=== PATIENT | male | born 1955 | race Hispanic/Latino ===

== ENCOUNTER → 2017-09-19 | Day surgery (SDC) | payer BC ==
[~2017-09-19] MED LIST: ASPIR 8181 MG PO; BACTRIM DS TAB1 EACH PO; CLINDAMYCIN HC300 MG PO; COZAAR25 MG PO; GLIMEPIRIDE2 MG PO; HYDROCODONE/APAP PO; JANUVIA100 MG PO; METFORMIN HCL500 M2 PO; OR PHACO EYE KIT ONE; PLAVIX75 MG PO; PRAVASTATIN SOD20 MG PO; PREOP PHACO EYE KIT ONE
== END | disposition home or self-care (01) ==
LOC: OR 05:00
PROVIDERS: ATTEND Ophthalmology
DX: H25.11 Age-related nuclear cataract, right eye (principal); I10 Essential (primary) hypertension; E11.9 Type 2 diabetes mellitus without complications; F17.210 Nicotine dependence, cigarettes, uncomplicated; Z79.02 Long term (current) use of antithrombotics/antiplatelets
CPT/HCPCS: 36415; 66984; 82948; V2632

== ENCOUNTER 2018-10-31 20:28 | Inpatient (IN) | payer BC ==
[~2018-10-31] VITALS: Ht 182.9 cm; Wt 86.2 kg
[~2018-10-31 20:28] MED LIST changes: -OR PHACO EYE KIT ONE; -PREOP PHACO EYE KIT ONE
--- OUTSIDE RECORDS SUMMARY | 2018-10-31 20:32 | XMS REPORT ---
Author Author [facility] Address Unknown Phone Unavailable Care Team Providers Care Photo Mask Pattern Generator Name Role Phone Unavailable Unavailable Payers Payer Name Policy Type Policy Number Effective Date Expiration Date Problems This patient has no known problems. Allergies, Adverse Reactions, Alerts Allergy Name Allergy Type Status Severity Reaction(s) Onset Date Inactive Date Treating Clinician Comments No Known Allergies DA Active U 2018-07-05 00:00:00 Medications This patient has no known medications.
[2018-10-31] MEDS ORDERED: SODIUM CHLORIDE 0.9% 1000ML 1,000 ML IV STA (20:58)
[2018-10-31 21:19] LABS: BASOPHILS # (AUTO) 0.1 (0.0-0.1); BASOPHILS % 0.4 % (0.0-1.0); EOSINOPHILS # (AUTO) 0.1 (0.0-0.4); EOSINOPHILS % 0.6 % (0.0-6.0); HEMATOCRIT 26.5 % (38.2-49.6); HEMOGLOBIN 9.1 g/dL (14.0-18.0); LYMPHOCYTES % 6.9 % (18.0-39.1); MEAN CORPUSCULAR HEMOGLOBIN 28.3 pg (28-32); MEAN CORPUSCULAR HGB CONC 34.3 g/dL (31-35); MEAN CORPUSCULAR VOLUME 82.3 fL (81-99); MONOCYTES % 6.7 % (4.4-11.3); NEUTROPHILS # (AUTO) 12.1 (2.1-6.9); NEUTROPHILS % 84.5 % (38.7-80.0); PLATELET COUNT 388 x10e3/uL (140-360); RED BLOOD COUNT 3.22 x10e6/uL (4.3-5.7)
[2018-10-31 21:35] LABS: ALBUMIN 2.5 g/dL (3.5-5.0); ALBUMIN/GLOBULIN RATIO 0.6 (0.8-2.0); ANION GAP 15.8 mmol/L (8-16); CALCIUM 8.9 mg/dL (8.4-10.2); CREATININE, SERUM 1.43 mg/dL (0.72-1.25); POTASSIUM 3.8 mmol/L (3.5-5.1)
[2018-10-31] MEDS: PIPER-TAZ 3.375 GM 50 ML IV SCH (21:36)
[2018-10-31] MEDS ORDERED: NEOMYCIN/POLYMYX/BACITR OINT 0.9 GM PKT TOP ONE (21:45)
[2018-10-31] MEDS: VANCOMYCIN 1GM/NS 250 ML 250 ML IV SCH (22:06)
--- NOTE | 2018-10-31 22:06 | NUR ---
wound to l plantar foot and great toe cleaned c ns. abx ointment applied. covered c 4x4 gauze and secured c kerlix.
--- NOTE | 2018-10-31 22:09 | Diagnostic Imaging Report ---
FOOT LEFT COMPLETE Comparison: None Clinical history: Osteomyelitis Findings: No displaced fracture or bony destruction. Mild midfoot degenerative changes. Incidental plantar calcaneal spur and Achilles enthesophyte. Vascular calcifications. Impression: No radiographic evidence of osteomyelitis. If there is ongoing clinical concern, consider short-term follow-up or MRI. Signed by: Dr Julia Jack MD on 10/31/2018 10:05 PM
[2018-10-31] MEDS ORDERED: DEXTROSE 50% SYRINGE 50 ML IV PRN (23:00)
[2018-10-31] MEDS ORDERED: MORPHINE SULFATE 2 MG/ML SYR 1ML IV PRN (23:00)
[2018-10-31] MEDS ORDERED: ONDANSETRON HCL INJ 2MG/ML 2ML 2 MG/ML VIAL IV PRN (23:00)
[2018-10-31] MEDS ORDERED: CLINDAMYCIN HC150 MG PO (23:24)
[2018-10-31] MEDS ORDERED: NIFEDIPINE ER30 M1 PO (23:24)
[2018-10-31] MEDS ORDERED: TYLENOL WITH C1 EACH PO (23:25)
[2018-10-31] MEDS ORDERED: METOPROLOL SUCC50 MG PO (23:26)
[2018-11-01] VITALS (11 sets, daily range): BP systolic 133–170; BP diastolic 64–81
[2018-11-01] MEDS: SODIUM CHLORIDE 0.9% 1000ML 1,000 ML IV SCH ×4 (00:38→22:53)
[2018-11-01] MEDS: PIPER-TAZ 3.375 GM 50 ML IV SCH ×3 (05:47→22:14)
[2018-11-01 06:49] LABS: BASOPHILS % 0.4 % (0.0-1.0); EOSINOPHILS # (AUTO) 0.1 (0.0-0.4); EOSINOPHILS % 0.6 % (0.0-6.0); HEMATOCRIT 24.1 % (38.2-49.6); HEMOGLOBIN 8.4 g/dL (14.0-18.0); LYMPHOCYTES % 8.5 % (18.0-39.1); MEAN CORPUSCULAR HEMOGLOBIN 28.5 pg (28-32); MEAN CORPUSCULAR HGB CONC 34.9 g/dL (31-35); MEAN CORPUSCULAR VOLUME 81.7 fL (81-99); MONOCYTES # (AUTO) 0.8 (0.2-0.8); NEUTROPHILS # (AUTO) 9.3 (2.1-6.9); NEUTROPHILS % 82.5 % (38.7-80.0); PLATELET COUNT 341 x10e3/uL (140-360); RED BLOOD COUNT 2.95 x10e6/uL (4.3-5.7); RED CELL DISTRIBUTION WIDTH 13.2 % (11.7-14.4)
--- NOTE | 2018-11-01 07:00 | NUR ---
rounded with night coordinator nurse, patient aware of change and in no distress. Call wasserman within reach and bed in lowest position
[2018-11-01 07:42] LABS: ALANINE AMINOTRANSFERASE 51 IU/L (0-55); ALBUMIN 2.2 g/dL (3.5-5.0); ALBUMIN/GLOBULIN RATIO 0.6 (0.8-2.0); ALKALINE PHOSPHATASE 87 IU/L (40-150); ANION GAP 13.7 mmol/L (8-16); BLOOD UREA NITROGEN 18 mg/dL (7-26); BUN/CREATININE RATIO 15 (6-25); CALCIUM 8.2 mg/dL (8.4-10.2); CARBON DIOXIDE 19 mmol/L (22-29); CHLORIDE 101 mmol/L (98-107); CREATININE, SERUM 1.18 mg/dL (0.72-1.25); EST GLOMERULAR FILTRATION RATE > 60 ML/MIN (60-); GLUCOSE 184 mg/dL (74-118); POTASSIUM 3.7 mmol/L (3.5-5.1); SODIUM 130 mmol/L (136-145)
[2018-11-01] MEDS: MORPHINE SULFATE INJ 4 MG/ML INJ 1ML IV PRN (08:30)
[2018-11-01] MEDS: INSULIN REGULAR, HUMAN 100 UNIT/1 ML 3ML VIAL SQ SCH ×4 (08:30→21:00)
[2018-11-01] MEDS: VANCOMYCIN 1GM/NS 250 ML 250 ML IV SCH ×2 (08:30→21:31)
--- NOTE | 2018-11-01 10:30 | Consultation ---
DATE OF CONSULTATION: November 01, 2018 REASON FOR CONSULTATION: Left foot pain, swelling, infection. HISTORY OF PRESENT ILLNESS: This is a 63-year-old male with a past medical history of hypertension, type 2 diabetes, peripheral neuropathy, peripheral vascular disease, and hyperlipidemia, who was admitted through the emergency room yesterday with a worsening infection to his left foot. Per the patient, the infection started 2 days ago to his left foot. He relates increasing erythema, edema and warmth. The patient is a previous patient of mine who was seen in the clinic last week for a right foot wound. However, did not have a left foot wound at that time. I asked the patient through the sheet metal lay out worker if he had a puncture wound. The patient relates that he is unsure due to neuropathy. The patient also relates to having a vascular procedure performed in July by Dr. Davies. The patient currently relates to some nausea. Has had fever and chills, but no vomiting. No other pedal complaints at this time. PAST MEDICAL HISTORY: Type 2 diabetes, peripheral neuropathy, peripheral vascular disease, hypertension, hyperlipidemia. PAST SURGICAL HISTORY: Angioplasty performed to the right lower extremity. MEDICATIONS: Per the chart. ALLERGIES: NO KNOWN DRUG ALLERGIES. SOCIAL HISTORY: The patient currently smokes approximately 1-pack per day. Denies alcohol or illicit drug usage. FAMILY HISTORY: Type 2 diabetes, peripheral neuropathy. REVIEW OF SYSTEMS: The patient relates to nausea without vomiting, fever, and chills. PHYSICAL EXAMINATION VASCULAR: Dorsalis pedis pulses faintly palpable to the left lower extremity. Posterior tibial pulse is nonpalpable to the left lower extremity. Moderate erythema, edema and warmth are extending from the plantar aspect of the left 1st metatarsophalangeal joint extending medially across the foot. NEUROLOGICAL: Sensation is absent to light touch bilateral. MUSCULOSKELETAL: Deferred. No pain on palpation. DERMATOLOGICAL: A necrotic draining ulceration is noted to the plantar aspect of the patient's left 1st metatarsophalangeal joint with fluctuance and malodor. Greater than 2 cm of periwound erythema extending to the level of the midfoot medially. The right foot has a dry, stable ulceration with no local acute signs of infection. LABS: White blood cell count is 11.2, hemoglobin 8.4, hematocrit 24.1, and platelet count 341,000. Sodium 130, potassium 3.7, chloride 101, CO2 19, BUN 18, creatinine 1.18. Glucose upon admission was 184. X-RAYS: Two views were taken of the patient's left foot, which showed no evidence of acute osteolytic changes. No evidence of soft tissue emphysema. ASSESSMENT 1. Left foot wound cellulitis and abscess formation. 2. Type 2 diabetes with peripheral neuropathy. 3. Peripheral vascular disease. PLAN: The patient was seen and evaluated. Discussed condition, x-rays and treatment options with the patient in detail. Recommended to the patient to perform at the very minimum an incision and drainage procedure to the left lower extremity to allow for decompression of the infection. However, will need vascular consult to determine optimization of blood flow for wound healing. Discussed with the patient that he may require an amputation or partial amputation of the left foot as well. The podiatry service will continue to monitor as an inpatient. The patient had breakfast this morning at 8 a.m. Will plan for an I and D later this afternoon if possible. If not, will have to plan for the next morning. This will be discussed with the OR scheduling team. The patient will be placed n.p.o. until further notice. Job#: [id number] HEMANTH
[2018-11-01] MEDS: ACETAMINOPHEN 325 MG TAB PO PRN (12:25)
--- NOTE | 2018-11-01 15:03 | NUR ---
WOUND CARE CONSULTATION: INITIAL EVALUATION Patient admitted for new onset of cellulitis of Left Foot. -Patient is a well know patient of Haven Dubose DPM and is following inpatient. HX: DM. PVD, Smoking, WBC11.23 HGB8.4 HCT24.1 NEUT%82.5 ALB2.2 IMAGING: X-Ray - Left Foot- No Evidence of OM Wound Culture - Left Foot - Few Gram + Cocci in Pairs - Final Pending. John Score 21 Consulted for Left Foot Wound: Patient in bed and in good spirits with daughter at bedside. Patient Urdu Speaking Right Hallux -non healing linear DFU Grade 1 that was being treated at Dr. Lamas's office. -Appears stable. -No Redness, -no drainage. -Dry Granular. Left Foot presents with rubor to mid foot starting to toes Left 1st metatarsal head - Deep Purple Ischemia with blanched ischemic areas to edges. Non-draining. with tenderness on articulation and touch. - hot to touch - Pedal Pulses faint bilaterally IMPRESSION: 1. Right Hallux- DFU Grade 1. 2. Left 1st Met Head - DFU- Grade 4 w/ Cellulitis and Ischemia. RECOMMENDATION: CONSERVATIVE TX AT THIS TIME Right Foot Great Toe - 1. Agree with Vascular Workup 2. Agree with Incision for decompression of cellulitis. 3. Conservative treatment until vascular workup is clear then Sharps vs SX Debridement once Demarcation is complete. 4. - Cleanse wound with Normal Saline and 4x4 Gauze - Lee with Betadine and cover with 4x4 gauze and secure with Tape Daily 5. Left Foot 1st Met Head - Cleanse wound with Betadine Solution -Apply Betadine Moistened Gauze followed by bolstered 4x4 gauze and wrap with Kerlix Daily. Patient is a good candidate Hyperbaric Therapy at [facility] for Non Healing Diabetic Foot Ulcer. Needs TCOM to rule out small vessel disease. Patient has had prior revascularization of RLE. Great candidate for Limb Salvage Program. Thank you for consulting with Wound Care. Addendum: 11/01/18 at 1529 by Ezekiel Dumont RN Amended: Links added.
[2018-11-01] MEDS ORDERED: SEVOFLURANE INHAL SOLN 250 ML PEN BTL ONE (16:09)
[2018-11-01] MEDS ORDERED: LIDOCAINE HCL 2% LOCAL INJ 5 ML SDV VIAL INJ ONE (16:09)
[2018-11-01] MEDS ORDERED: PROPOFOL IV EMULSION 10 MG/ML 20 ML VIAL ONE (16:09)
[2018-11-01] MEDS ORDERED: DEXAMETHASONE SOD PHOS INJ 4 MG/ML VIAL ONE (16:09)
[2018-11-01] MEDS ORDERED: ONDANSETRON HCL INJ 2MG/ML 2ML 2 MG/ML VIAL ONE (16:09)
--- NOTE | 2018-11-01 16:45 | NUR ---
patient leaving floor to OR in stable condition, alert and oriented and in no distress. Leaving on hospital bed.
[2018-11-01] MEDS ORDERED: MIDAZOLAM HCL 2 MG/2 ML VIAL ONE (17:08)
[2018-11-01] MEDS ORDERED: FENTANYL CITRATE/PF 100MCG/2 ML INJ ONE (17:08)
--- NOTE | 2018-11-01 17:12 | NUR ---
Nutrition Screen Note RD Recommendation for Physician: -Continue ADA diet as ordered -Pt refused diet education on 11/01. Plan of Care: RD following, monitoring for tolerance and adequacy Nutrition reason for involvement: Nutrition Risk Trigger MST Primary Diagnose(s): 1. Left foot wound cellulitis and abscess formation. 2. Type 2 diabetes with peripheral neuropathy. 3. Peripheral vascular disease. PMH: hypertension, type 2 diabetes, peripheral neuropathy, peripheral vascular disease, and hyperlipidemia Ht: 72in Wt: 194.38lb BMI: 26.4kg/m2 IBW: 178lb RD Assessment: (11/01) Chart reviewed. Labs and meds reviewed. 63yo M, who is admitted for L foot pain. Visited pt in room. Daughter presented on bedside to translate as pt only speaks Serbian. 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 Pt denied chewing/swallowing problems and nausea/vomiting. Good appetite and PO intake on current ADA diet. LBM 11/01. Pt refused diet education. Will cont to monitor. Please consult as needed. Current Diet: ADA diet Malnutrition Evaluation (11/01/2018) The patient does not meet criteria for a specified degree of malnutrition at this time. Will re-evaluate at follow-up as appropriate. Diet Education Needs Assessment: Diet education indicated, pt refused. Nutrition Care Level: low Signed: Sussy Cantu, MS, RD, LD
[2018-11-01] MEDS ORDERED: BUPIVACAINE 0.25% 30ML SDV INJ ONE (17:24)
[2018-11-01] MEDS ORDERED: BACITRACIN 50,000 UNIT VIAL ONE (17:25)
--- NOTE | 2018-11-01 18:29 | NUR ---
report received from Giovanni from PACU, patient in stable condition and will be returning to floor on hospital bed.
--- NOTE | 2018-11-01 18:35 | NUR ---
patient arrived on floor in stable condition, dressing on left foot dry and in tact.
--- NOTE | 2018-11-01 19:11 | NUR ---
rounded with shift mgr nurse, patient aware of change. Patient in no distress and call wasserman within reach.
[2018-11-02] VITALS (7 sets, daily range): BP systolic 130–192; BP diastolic 61–83
[2018-11-02] MEDS: ACETAMINOPHEN 325 MG TAB PO PRN ×2 (03:59→13:01)
[2018-11-02] MEDS: PIPER-TAZ 3.375 GM 50 ML IV SCH ×2 (05:36→13:00)
[2018-11-02] MEDS: SODIUM CHLORIDE 0.9% 1000ML 1,000 ML IV SCH ×2 (05:36→17:24)
--- NOTE | 2018-11-02 06:34 | NUR ---
Patient with elevated bp. Called niki Lee to restart home bp meds.
[2018-11-02] MEDS ORDERED: NIFEDIPINE CR 30 MG TAB PO NR (09:00)
[2018-11-02] MEDS ORDERED: LOSARTAN POTASSIUM 25 MG TAB PO SCH (09:00)
[2018-11-02] MEDS ORDERED: NIFEDIPINE CR 30 MG TAB PO SCH (09:00)
[2018-11-02 09:12] LABS: BASOPHILS # (AUTO) 0.1 (0.0-0.1); BASOPHILS % 0.4 % (0.0-1.0); EOSINOPHILS # (AUTO) 0.1 (0.0-0.4); HEMATOCRIT 27.1 % (38.2-49.6); LYMPHOCYTES # (AUTO) 1.2 (1.0-3.2); LYMPHOCYTES % 9.5 % (18.0-39.1); MEAN CORPUSCULAR HGB CONC 33.2 g/dL (31-35); MEAN CORPUSCULAR VOLUME 84.2 fL (81-99); MONOCYTES % 7.9 % (4.4-11.3); NEUTROPHILS # (AUTO) 10.5 (2.1-6.9); NEUTROPHILS % 80.3 % (38.7-80.0); PLATELET COUNT 430 x10e3/uL (140-360); RED BLOOD COUNT 3.22 x10e6/uL (4.3-5.7); RED CELL DISTRIBUTION WIDTH 13.1 % (11.7-14.4)
--- NOTE | 2018-11-02 09:17 | Operative Report ---
DATE OF PROCEDURE: November 01, 2018 PREOPERATIVE DIAGNOSIS: Left foot abscess and cellulitis. POSTOPERATIVE DIAGNOSIS: Left foot abscess and cellulitis. PLANNED PROCEDURE: Left foot incision and drainage. ANESTHESIA: General. Postoperative block consisting of 10 mL of 0.5% Marcaine plain. HEMOSTASIS: Pneumatic thigh tourniquet set at 350 mmHg for a total time of approximately 20 minutes. MATERIALS: Quarter-inch iodoform packing. PATHOLOGY: Anaerobic and aerobic cultures sent for gross specimen. ESTIMATED BLOOD LOSS: Less than 10 mL. PROCEDURE IN DETAIL: The patient was seen in the preop waiting room where the correct procedure and site were identified. The patient was brought to the operating room and placed on the operating table in the supine position. General anesthesia was initiated. At this time, a well-padded pneumatic tourniquet was placed about the patient's left thigh. The left foot, ankle and leg were then scrubbed, prepped and draped in the usual aseptic manner. The left foot, ankle and leg were exsanguinated with gravity, and the pneumatic thigh tourniquet was inflated to 350 mmHg for a total time of approximately 20 minutes. Attention was directed to the plantar aspect of the patient's left 1st metatarsophalangeal joint where a large necrotic ulceration with purulent drainage and fluctuance was noted. An incision was made directly into the most fluctuant area over the abscess. Upon incision, a moderate amount of purulent drainage was exuded and a culture passed off to the back table. The remainder of the necrotic and devitalized tissue was debrided, which left a large ulceration to the plantar aspect of 1st metatarsophalangeal joint, approximately 5 cm x 5 cm. A 2nd incision was made over the medial aspect of the patient's left ankle, and a small amount of serosanguineous fluid was exuded as well as a small amount of purulence. Next, utilizing a pulse lavage, both wounds were irrigated with copious amounts of sterile saline. Both incision sites were packed open with iodoform gauze and dressed with 4 x 4's, Kerlix and an Yordan wrap. The patient tolerated the procedure and anesthesia well. The patient was transferred to the postoperative recovery room with vital signs stable and vascular status intact. Patient was monitored there for a short period of time before being readmitted to the floor for postoperative monitoring, IV antibiotics and pain control. The podiatry service will continue to monitor as an inpatient. Job#: [id number]
[2018-11-02 09:37] LABS: BLOOD UREA NITROGEN 10 mg/dL (7-26); BUN/CREATININE RATIO 9 (6-25); CALCIUM 8.8 mg/dL (8.4-10.2); CARBON DIOXIDE 22 mmol/L (22-29); CHLORIDE 98 mmol/L (98-107); CREATININE, SERUM 1.06 mg/dL (0.72-1.25); EST GLOMERULAR FILTRATION RATE > 60 ML/MIN (60-); GLUCOSE 251 mg/dL (74-118); MAGNESIUM 1.3 MG/DL (1.3-2.1); SODIUM 131 mmol/L (136-145)
[2018-11-02] MEDS: METOPROLOL SUCCINATE 50 MG TAB XL PO SCH (10:06)
[2018-11-02] MEDS: LOSARTAN POTASSIUM 100 MG TAB PO SCH (10:06)
[2018-11-02] MEDS: VANCOMYCIN 1GM/NS 250 ML 250 ML IV SCH ×2 (10:06→21:00)
[2018-11-02] MEDS: INSULIN REGULAR, HUMAN 100 UNIT/1 ML 3ML VIAL SQ SCH ×4 (10:07→21:00)
[2018-11-02] MEDS: NIFEDIPINE CR 30 MG TAB PO SCH ×2 (10:08→21:34)
--- NOTE | 2018-11-02 10:10 | NUR ---
Pt received resting in bed with daughter at bedside. Alert and oriented x4 but Armenian speaking only. Pt is blind in left eye. Saline lock #20 inserted into left upper arm. Pt withright great toe wound, left first metatarsal head wound, and left dorsal incision. All wound care done. Emotional support given. Oriented to staff and surroundings. Encouraged to press call wasserman if help needed. All meds given as ordered. Emotional support given. Will monitor
[2018-11-02] MEDS: MORPHINE SULFATE INJ 4 MG/ML INJ 1ML IV PRN (13:00)
--- NOTE | 2018-11-02 13:02 | NUR ---
WOUND CARE CONSULTATION - FOLLOW UP Patient admitted from home for sudden onset of cellulitis of left foot. Currently being followed for IP and OP WC by Haven Dubose. WBC13.03 HGB8.4 HCT24.1 NEUT%82.5 ALB2.2 [id number] Patient Visit: -Patient in Good Spirits AAOx4 -Noted Left Foot Dressing with bloody Strikethrough -Patient Sitting at bedside dangling feet with SX shoe on top of bed. - Education provided to not walk on foot and not to bear weight without postop shoe. - Dressing Changed. Dr Lamas notified of findings, arrived shortly and treatment plan discussed. - Dressing changed as prescribed-Tolerated procedure well without discomfort. IMPRESSION: 1. Right Foot Great Toe - Non-Healing DFU Grade 1 w/Biofilm forming. 2. Left Foot 1st Met Head- DFU Grade 3- w/exposed tendon- S/P I&D 10/31/[address] Cydney Orourke. 3. Left Dorsal Incision-S/P I&D 10/31/[address] Cydney Orourke. RECOMMENDATION: 1. Could benefit from PEG Shoe Insert to Post Op Shoe with PEGS removed at 1st Met head. 2. Right Foot Great Toe - w/Biofilm forming. - Aggressively cleanse wound bed with Normal Saline and 4x4 Gauze.( Goal: Beefy Red ) - Apply Silvasorb Gel and Cover with 4x4 gauze Daily. 3. Left Foot 1st Met Head- w/exposed tendon - Cleanse wound with Normal Saline and 4x4 Gauze. -Apply Silvasorb Gel and Cover with Adaptic+ bolstered/staggered 4x4 Gauze and wrap with Kerlix Daily. 4. Left Dorsal Incision- - Cleanse wound with Normal Saline and 4x4 Gauze. - Maxsorb Ag+ and Cover with bolstered/staggered 4x4 Gauze and wrap with Kerlix Daily. ( Patient is great candidate for limb salvage program at [facility], Right Grade 3 DFU + DM Type2, Non Healing Right Hallux DFU ) Thank you for consulting with Wound Care. Addendum: 11/02/18 at 1317 by Ezekiel Dumont RN Amended: Links added.
--- NOTE | 2018-11-02 15:51 | Progress Note ---
DATE: November 02, 2018 SUBJECTIVE: This is a 63-year-old male with past medical history of hypertension, type-2 diabetes, peripheral neuropathy, peripheral vascular disease, hyperlipidemia, postoperative day 1 left foot incision and drainage procedure. Patient relates to minimal pain at this time. Currently denies nausea, vomiting, and chills but did relate to a fever overnight. No other pedal complaints at this time. OBJECTIVE VITAL SIGNS: Today, temperature 97.2, heart rate 83, respiratory rate 22, blood pressure 192/83, pulse ox 95% on room air. PROBLEM - FOCUSED LOWER EXTREMITY PHYSICAL EXAMINATION VASCULAR: Dorsalis pedis and posterior tibial pulses are faintly palpable. Capillary refill time is less than 3 seconds to all digits. Erythema, edema and warmth are improved to the left lower extremity. NEUROLOGIC: Sensation is absent to light touch bilateral. MUSCULOSKELETAL: Deferred. Negative pain on palpation. DERMATOLOGICAL: Large postsurgical ulceration is noted to the plantar aspect of the 1st metatarsophalangeal joint. The wound is a fibrogranular. There is tendon exposed. No bone is exposed at this point. Improvement in local acute signs of infection. A 2nd incision is noted along the medial aspect of the ankle. No active drainage is noted at this time. LABS: White blood cell count is 13.3, hemoglobin 9.0, hematocrit 27.1, platelet count 430. Sodium 131, potassium 4.0, chloride 98, CO2 22, BUN 10, creatinine 1.06. Glucose 251. ASSESSMENT 1. Left foot wound, cellulitis and abscess formation, postoperative day 1 incision and drainage procedure. 2. Type-2 diabetes with peripheral neuropathy. 3. Peripheral vascular disease. PLAN: Patient was seen and evaluated. Discussed condition, x-rays and treatment options with the patient in detail. I discussed the case with wound care. Will be planning SilvaSorb and Adaptic to the area to prevent over-dryness to the left lower extremity. Local acute signs of infection are improving. Recommend continuation of IV antibiotics until wound cultures are received. Vascular studies have been ordered and apparently so has an MRI. Depending on the results of these, will discuss antibiotics and wound care pending discharge. Job#: [id number]
--- NOTE | 2018-11-02 16:00 | NUR ---
Pt left unit for MRI
--- NOTE | 2018-11-02 16:38 | NUR ---
Pt returned from MRI
--- NOTE | 2018-11-02 16:50 | Diagnostic Imaging Report ---
TECHNIQUE: Magnetic resonance imaging of the LEFT foot was performed WITHOUT injected contrast. HISTORY: Left foot pain COMPARISON: None available. DISCUSSION: Soft tissue ulceration of the plantar forefoot adjacent to the first metatarsal head. No significant bone marrow edema or T1 replacement within the metatarsal or phalanges of the hallux. Sclerotic change of the medial tibial sesamoid likely chronic reactive change. Atrophy of the foot musculature. No discrete soft tissue abscess. Soft tissue swelling and edema. IMPRESSION: Plantar ulceration of the forefoot. No osteomyelitis. Signed by: Dr. Octavio Gauthier M.D. on 11/02/2018 4:46 PM
[2018-11-02] MEDS: CEFEPIME 2 GM/NS 0.9% 100 ML 100 ML IV SCH (17:23)
--- NOTE | 2018-11-02 18:43 | Consultation ---
DATE OF CONSULTATION: November 02, 2018 CARDIOLOGY CONSULTATION REFERRING PHYSICIAN: Ezequiel Dailey MD REASON FOR CONSULTATION: Foot wound. HISTORY OF PRESENT ILLNESS: Mr. Zaldivar is a pleasant 63-year-old man, well known to me with history of diabetes mellitus type 2, hypertension, dyslipidemia, coronary artery disease, and peripheral vascular disease with predominant small vessel foot disease with chronic first right toe wound, who presents to [facility] after developing chills and fevers. He then noticed he had erythema, swelling, and secretion of his left foot. He was noted to have ongoing foot infection. Podiatry was consulted and debridement urgently done. He feels better somewhat now and he is proceeding IV antibiotics. We have been consulted for evaluation from a cardiovascular standpoint. He denies any chest pain or shortness of breath at this time. REVIEW OF SYSTEMS: Twelve-system review is negative except for as noted above. ALLERGIES: NO KNOWN DRUG ALLERGIES REPORTED. PAST MEDICAL HISTORY: Significant for as per HPI, previous angiogram to lower extremities in the past were right lower extremity issues at that time. SOCIAL HISTORY: No active smoking. No alcohol. No drugs. FAMILY HISTORY: Noncontributory. CARDIOVASCULAR MEDICATIONS: Reviewed. Losartan 100 mg daily, nifedipine 60 mg every 12 hours, Zosyn, and vancomycin antibiotics. STUDIES: Reviewed. Creatinine 1, hemoglobin 9, white blood cells 13, platelets 408, potassium 4, and bicarbonate 22. ASSESSMENT 1. Peripheral vascular disease presenting with left foot abscess and cellulitis, now status post incision and drainage and with IV antibiotics ongoing. 2. Diabetes mellitus, type II. 3. Hypertension. 4. Dyslipidemia. 5. Coronary artery disease. RECOMMENDATIONS 1. Anemia workup advised. 2. Obtain lower extremity arterial Doppler ultrasound. 3. If no active bleeding, add aspirin. 4. Resume statin if okay with other treating physicians. 5. Further vascular evaluation to be discussed with patient if any unusual findings. Thank you for the opportunity to participate in the care of Mr. Zaldivar. We will coordinate care with podiatry. Job#: [id number] RADHA
--- NOTE | 2018-11-02 19:00 | NUR ---
patient recieved awake, alert, lying quietly in bed. vss. no c/o pain noted. ivf continue to infuse without difficulty. dressings to both feet c,d,i. pm assessment complete. patient instructed to call for assistance when needed.
[2018-11-03] VITALS (8 sets, daily range): BP systolic 127–136; BP diastolic 60–88
[2018-11-03] MEDS: CEFEPIME 2 GM/NS 0.9% 100 ML 100 ML IV SCH ×2 (01:03→11:45)
[2018-11-03 07:08] LABS: BASOPHILS # (AUTO) 0.1 (0.0-0.1); BASOPHILS % 0.6 % (0.0-1.0); EOSINOPHILS # (AUTO) 0.4 (0.0-0.4); EOSINOPHILS % 3.8 % (0.0-6.0); HEMATOCRIT 24.7 % (38.2-49.6); HEMOGLOBIN 8.2 g/dL (14.0-18.0); LYMPHOCYTES # (AUTO) 1.1 (1.0-3.2); LYMPHOCYTES % 9.8 % (18.0-39.1); MEAN CORPUSCULAR HEMOGLOBIN 28.1 pg (28-32); MEAN CORPUSCULAR HGB CONC 33.2 g/dL (31-35); MEAN CORPUSCULAR VOLUME 84.6 fL (81-99); MONOCYTES # (AUTO) 0.7 (0.2-0.8); MONOCYTES % 6.5 % (4.4-11.3); NEUTROPHILS # (AUTO) 8.6 (2.1-6.9); NEUTROPHILS % 77.8 % (38.7-80.0); PLATELET COUNT 406 x10e3/uL (140-360); RED BLOOD COUNT 2.92 x10e6/uL (4.3-5.7)
[2018-11-03 07:32] LABS: ANION GAP 14.5 mmol/L (8-16); BLOOD UREA NITROGEN 15 mg/dL (7-26); BUN/CREATININE RATIO 13 (6-25); CALCIUM 8.3 mg/dL (8.4-10.2); CARBON DIOXIDE 21 mmol/L (22-29); CHLORIDE 102 mmol/L (98-107); CREATININE, SERUM 1.16 mg/dL (0.72-1.25); EST GLOMERULAR FILTRATION RATE > 60 ML/MIN (60-); GLUCOSE 220 mg/dL (74-118); POTASSIUM 4.5 mmol/L (3.5-5.1); SODIUM 133 mmol/L (136-145)
[2018-11-03] MEDS: VANCOMYCIN 1GM/NS 250 ML 250 ML IV SCH ×2 (08:17→20:49)
[2018-11-03] MEDS: LOSARTAN POTASSIUM 100 MG TAB PO SCH (08:17)
[2018-11-03] MEDS: SODIUM CHLORIDE 0.9% 1000ML 1,000 ML IV SCH (08:17)
[2018-11-03] MEDS: INSULIN REGULAR, HUMAN 100 UNIT/1 ML 3ML VIAL SQ SCH ×4 (08:17→20:47)
[2018-11-03] MEDS: NIFEDIPINE CR 30 MG TAB PO SCH ×2 (08:18→20:48)
[2018-11-03] MEDS: METOPROLOL SUCCINATE 50 MG TAB XL PO SCH (08:18)
--- NOTE | 2018-11-03 08:19 | NUR ---
Pt received resting in bed. Dressing to both feet clean dry and intact. Call wasserman within reach. Emotional support given. All meds given as ordered. Will monitor
--- NOTE | 2018-11-03 12:48 | Progress Note ---
DATE: November 03, 2018 SUBJECTIVE: A 63-year-old male with past medical history of type 2 diabetes, peripheral neuropathy, peripheral vascular disease, hyperlipidemia. Postoperative day 2, left foot incision and drainage procedure. Patient relates to minimal pain at this time. Denies nausea, vomiting, fever, chills, chest pain, or shortness of breath. No other pedal complaints at this time. OBJECTIVE VITAL SIGNS: Today, temperature is 98.0, heart rate 77, respiratory rate 20, blood pressure is 136/63, pulse ox 98% on room air. PROBLEM - FOCUSED LOWER EXTREMITY PHYSICAL EXAMINATION VASCULAR: Dorsalis pedis and posterior tibial pulses are faintly palpable. Capillary refill time less than 3 seconds to all digits. Erythema, edema, and warmth are still present, however, improved to the lower extremity. Sensation is absent to light touch bilateral. MUSCULOSKELETAL: Deferred. Negative pain on palpation. DERMATOLOGICAL: Large postsurgical ulceration is noted to the plantar aspect of the 1st metatarsophalangeal joint. The wound is fibrotic with tendon exposed. No bone is exposed. Improvement in local acute signs of infection. Second incision is noted along the medial aspect of the ankle joint. No active drainage is noted at this time. LABS: White blood cell count is 11.08, hemoglobin 8.2, hematocrit 24.7, platelet count 406. Sodium 133, potassium 4.5, chloride 102, CO2 of 21, BUN 15, creatinine 1.16, glucose 220. IMAGING: MRI reveals no evidence of any osteomyelitis to the right forefoot. Arterial Dopplers are pending. ASSESSMENT 1. Left foot wound cellulitis, abscess formation, postoperative day 2, incision and drainage procedure. 2. Type 2 diabetes. 3. Peripheral neuropathy. 4. Peripheral vascular disease. PLAN: Patient was seen and evaluated. Discussed condition, x-rays, and MRI with the patient in detail. The wound was changed today with saline wet-to-dry. I would recommend [facility] wet-to-dry wound care for enzymatic debridement. Continue IV antibiotics at this time until sensitivities are returned. Minimal partial weightbearing to the heel in postoperative shoe. Dr. Davies has been consulted for vascular status optimization. Podiatry will continue to monitor as an inpatient. Job#: [id number] LPA
--- NOTE | 2018-11-03 12:52 | Progress Note ---
DATE: November 03, 2018 MEDICINE PROGRESS NOTE SUBJECTIVE: I am covering for Dr. Dailey. Patient is being treated for underlying left foot cellulitis. Imaging studies negative for any osteomyelitis. OBJECTIVE VITAL SIGNS: Temperature is 98, pulse 77, respiratory rate is 20, blood pressure is 136/63, pulse ox 98% on room air. GENERAL: Not in acute distress, alert and oriented x3, cooperative on examination. HEENT: Head normocephalic, atraumatic. Eyes; pupils equal, round and reactive to light bilaterally. Extraocular movements intact bilaterally. Throat with no evidence of any erythema or exudates in the posterior pharynx. Has poor dentition. NECK: Supple. Good range of motion. PULMONARY: Clear to auscultation bilaterally. No wheezing. No rales. No rhonchi. No crackles appreciated. CARDIOVASCULAR: Positive S1 and S2. No murmurs, rubs or gallops appreciated. ABDOMEN: Soft, nondistended, and nontender to palpation. Bowel sounds present. MUSCULOSKELETAL: Strength is 5/5 throughout. No evidence of any muscle deficit on examination. No weakness appreciated. NEUROLOGICAL: Cranial nerves II-XII are grossly intact. No evidence of any neurological deficits on exam. SKIN: Intact. Warm to touch. Good cap refill. PSYCHIATRIC: Normal affect and mood. EXTREMITIES: No edema. Good range of motion throughout. LAB FINDINGS: Show white count 11, hemoglobin 8.3, hematocrit are 24.7, platelets are 480. Chemistries: Sodium 133, potassium 4.5, chloride 102, bicarb 29, anion gap 20, BUN 15, creatinine is 4.1, glucose is 320, calcium is 8.3. MICROBIOLOGY: Blood cultures negative. Wound culture is Staph aureus. Repeat wound culture is pending. IMAGING STUDIES: MRI of the foot shows plantar ulceration of the forefoot, no evidence of any osteomyelitis. X-ray of the foot, no evidence of any osteomyelitis seen. IMPRESSION 1. Left foot wound cellulitis with abscess formation with no evidence of any osteomyelitis, status post incision and drainage performed by podiatry. 2. Type 2 diabetes with peripheral neuropathy. 3. Peripheral vascular disease. 4. Hypertension. PLAN: At this time, we will continue with IV antibiotics, in which ID is following. Podiatry is following as well. Daily wound care as well. Blood pressure was elevated yesterday. Medications were adjusted accordingly with much improvement in blood pressure. Continue with same plan of care. We will discontinue the normal saline. Put him on Lovenox for DVT prophylaxis. Job#: [id number] LUANA
--- NOTE | 2018-11-03 15:10 | Progress Note ---
DATE: INFECTIOUS DISEASE PROGRESS NOTE SUBJECTIVE: Mr. Zaldivar is doing better today, no new complaints. REVIEW OF SYSTEMS: Otherwise, there is nothing new. PHYSICAL EXAMINATION GENERAL: He is currently alert and oriented, does not seem to be in acute distress. VITAL SIGNS: Stable, afebrile. HEENT: Not icteric. NECK: Supple. CHEST: Clear. HEART: S1, S2. No murmur. ABDOMEN: Soft. IMPRESSION AND PLAN 1. Osteomyelitis infection of the foot. 2. Peripheral vascular disease. 3. Diabetes mellitus. 4. Hypertension. 5. Hyperlipidemia. Continue with cefepime and vancomycin. Recheck CBC. Recheck chem panel. We will follow. Job#: [id number] JOSE
[2018-11-03] MEDS: ENOXAPARIN SOD INJ 40 MG/0.4 ML SYR SC SCH (17:15)
--- NOTE | 2018-11-03 19:00 | NUR ---
patient recieved awake, alert, lying quietly in bed. vss. no c/o pain noted. ivf continue to infuse without difficulty. pm assessment complete. patient instructed to call for assistance when needed.
--- NOTE | 2018-11-03 19:42 | Progress Note ---
DATE: November 03, 2018 CARDIOLOGY PROGRESS NOTE SUBJECTIVE: Foot discomfort improving. No new complaints. Denies chest pain or shortness of breath. OBJECTIVE VITAL SIGNS: Temperature of 98 degrees, heart rate 77, blood pressure 136/63, respiratory rate 20, O2 sat 98%. GENERAL: In no acute distress, alert. NECK: No JVD. CHEST: Clear to auscultation. CARDIOVASCULAR: Regular rate and rhythm. Normal S1 and S2. No S3 or S4. ABDOMEN: Soft, nontender. EXTREMITIES: No edema. Right first toe tip ulcer overall seems to be improving or decreasing in size. The left foot wounds are open with some fibrinous material covering as well as some black discolored areas. MEDICATIONS: Reviewed. Nifedipine, Lovenox, metoprolol, losartan, cefepime, and vancomycin. STUDIES: Reviewed. Creatinine 1.16, potassium 4.5. Hemoglobin 8.2, white blood cells 11, platelets 406. AST 33, ALT 51, alk phos 87. ASSESSMENT 1. Left foot abscess and cellulitis, status post incision and drainage. 2. Peripheral vascular disease, predominantly outflow disease. 3. Chronic right first toe wound. 4. Hypertension. 5. Active smoker. 6. Dyslipidemia. RECOMMENDATIONS 1. Continue antibiotics. 2. Podiatry care ongoing. Monitor foot wound. 3. Arterial Dopplers again suggesting predominantly small vessel/outflow disease. We will discuss with patient. Plans for conservative management at this point versus repeat angiography should wound healing be impaired. Job#: [id number] LPA
[2018-11-04] VITALS (8 sets, daily range): BP systolic 141–150; BP diastolic 64–71
[2018-11-04] MEDS: CEFEPIME 2 GM/NS 0.9% 100 ML 100 ML IV SCH ×2 (01:45→12:00)
[2018-11-04 07:14] LABS: BASOPHILS # (AUTO) 0.1 (0.0-0.1); BASOPHILS % 0.6 % (0.0-1.0); EOSINOPHILS # (AUTO) 0.5 (0.0-0.4); EOSINOPHILS % 5.5 % (0.0-6.0); HEMATOCRIT 22.1 % (38.2-49.6); HEMOGLOBIN 8.1 g/dL (14.0-18.0); LYMPHOCYTES % 10.4 % (18.0-39.1); MEAN CORPUSCULAR HEMOGLOBIN 29.6 pg (28-32); MEAN CORPUSCULAR HGB CONC 36.7 g/dL (31-35); MEAN CORPUSCULAR VOLUME 80.7 fL (81-99); MONOCYTES # (AUTO) 0.6 (0.2-0.8); MONOCYTES % 6.1 % (4.4-11.3); NEUTROPHILS # (AUTO) 7.4 (2.1-6.9); NEUTROPHILS % 76.7 % (38.7-80.0); PLATELET COUNT 399 x10e3/uL (140-360); RED BLOOD COUNT 2.74 x10e6/uL (4.3-5.7); RED CELL DISTRIBUTION WIDTH 13.1 % (11.7-14.4)
[2018-11-04 07:44] LABS: ANION GAP 15.4 mmol/L (8-16); BLOOD UREA NITROGEN 12 mg/dL (7-26); BUN/CREATININE RATIO 12 (6-25); CALCIUM 8.2 mg/dL (8.4-10.2); CARBON DIOXIDE 19 mmol/L (22-29); CHLORIDE 103 mmol/L (98-107); CREATININE, SERUM 1.02 mg/dL (0.72-1.25); EST GLOMERULAR FILTRATION RATE > 60 ML/MIN (60-); GLUCOSE 202 mg/dL (74-118); POTASSIUM 4.4 mmol/L (3.5-5.1); SODIUM 133 mmol/L (136-145)
[2018-11-04] MEDS ORDERED: SODIUM CHLORIDE 0.9% 250ML 250 ML ONE (08:42)
[2018-11-04] MEDS: LOSARTAN POTASSIUM 100 MG TAB PO SCH (08:50)
[2018-11-04] MEDS: VANCOMYCIN 1GM/NS 250 ML 250 ML IV SCH ×2 (08:50→20:51)
[2018-11-04] MEDS: INSULIN REGULAR, HUMAN 100 UNIT/1 ML 3ML VIAL SQ SCH ×4 (08:50→20:54)
--- NOTE | 2018-11-04 08:50 | NUR ---
Pt received resting in bed, dressings to both feet dry, and intact. O2 @L NC in place. All meds given as ordered. Call wasserman within reach. Emotional support given. Call wasserman within reach. Will monitor
[2018-11-04] MEDS: NIFEDIPINE CR 30 MG TAB PO SCH ×2 (08:51→20:51)
[2018-11-04] MEDS: METOPROLOL SUCCINATE 50 MG TAB XL PO SCH (08:51)
--- NOTE | 2018-11-04 12:16 | Progress Note ---
DATE: November 04, 2018 MEDICINE PROGRESS NOTE I am covering for Dr. Dailey. SUBJECTIVE: The patient is doing well at his baseline. OBJECTIVE VITAL SIGNS: Temperature is 98.4, pulse 70, respiratory rate is 20, blood pressure 141/67, pulse ox 98% on room air. GENERAL: Not in acute distress, alert and oriented x3, cooperative on examination. HEENT: Head normocephalic, atraumatic. Eyes, pupils equal, round and reactive to light bilaterally. Extraocular movements intact bilaterally. Throat with no evidence of any erythema or exudates in the posterior pharynx. Has poor dentition. NECK: Supple. Good range of motion. PULMONARY: Clear to auscultation bilaterally. No wheezing. No rales. No rhonchi. No crackles appreciated. CARDIOVASCULAR: Positive S1 and S2. No murmurs, rubs, or gallops appreciated. ABDOMEN: Soft, nondistended, and nontender to palpation. Bowel sounds present. MUSCULOSKELETAL: Strength is 5/5 throughout. No evidence of any musculoskeletal deficit on examination. No weakness appreciated. NEUROLOGICAL: Cranial nerves II through XII are grossly intact. No evidence of any neurological deficits on exam. SKIN: Intact. Warm to touch. Good cap refill. PSYCHIATRIC: Normal affect and mood. EXTREMITIES: No edema. Good range of motion throughout. LAB FINDINGS: Show white count 9.6, hemoglobin 8.1, hematocrit is 22, platelets of 399. Chemistries: Sodium 133, potassium 4.4, chloride is 103, bicarb is 19, anion gap of 13, BUN is 12, creatinine is 1. His glucose is elevated right now, point of care is 214. MICROBIOLOGY: Wound cultures, Staphylococcus MRSA, gram-negative bacilli and Enterococcus group D. Blood cultures were negative. IMPRESSION 1. Left foot wound cellulitis with abscess formation with no evidence of any osteomyelitis, status post incision and drainage performed by podiatry. 2. Type 2 diabetes with peripheral neuropathy. 3. Peripheral arterial disease. 4. Hypertension. PLAN: At this time, continue with IV antibiotics. ID is following closely as well as podiatry. His glucose levels are elevated. We will go ahead and add Levemir 10 units subcu at bedtime. Check hemoglobin A1c with repeat a.m. labs. Blood pressure is much improved. Continue with Lovenox for DVT prophylaxis. Job#: [id number] MAXIMILIANO
--- NOTE | 2018-11-04 12:49 | Progress Note ---
DATE: November 04, 2018 SUBJECTIVE: This is a 63-year-old male with past medical history of type 2 diabetes, peripheral neuropathy, peripheral vascular disease, hyperlipidemia, postoperative day 3 left foot incision and drainage procedure. Patient relates no pain at this time. Denies nausea, vomiting, fever, chills, chest pain, or shortness of breath. No other pedal complaints at this time. OBJECTIVE VITAL SIGNS: Today, temperature 98.4, heart rate 70, respiratory rate 20, blood pressure 141/67. Pulse ox is 98% on room air. PROBLEM - FOCUSED LOWER EXTREMITY PHYSICAL EXAMINATION VASCULAR: Dorsalis pedis and posterior tibial pulses are palpable. Capillary refill time less than 3 seconds to all digits. Erythema, edema and warmth are nearly completely resolved, improved to the lower extremity. MUSCULOSKELETAL: Deferred. Negative pain on palpation. NEUROLOGICAL: Absent to light touch. DERMATOLOGICAL: Large postsurgical ulceration is noted to the plantar aspect of the 1st metatarsophalangeal joint. The wound is 100% fibrotic and slightly macerated. No bone is exposed. Improvement of local acute signs of infection. Second incision along the medial aspect of the joint is nearly completely fully epithelialized at this time. LABS: White blood cell count is 9.6, hemoglobin 8.1, hematocrit 22.1, platelet count is 399. Sodium 133, potassium 4.4, chloride 103, CO2 19, BUN 12, creatinine 1.02. Glucose of 214. IMAGING: MRI negative for any osteomyelitis. Arterial Dopplers reveal bilateral lower extremities, waveforms demonstrate outflow disease, likely more small vessel than large vessel. WOUND CULTURES: MRSA gram-negative shayna, enterococcus group D. ASSESSMENT 1. Left foot wound cellulitis, abscess formation, postoperative day 3 incision and drainage procedure. 2. Type 2 diabetes. 3. Peripheral neuropathy. 4. Peripheral vascular disease. PLAN: Patient was seen and evaluated. Discussed condition, x-rays, and MRI with the patient and patient's family in detail. The wound was changed today with Betadine wet-to-dry due to the maceration. Would recommend Santyl for enzymatic treatment with wound care. Continue IV antibiotics at this time. Discussed with patient that likely scenario would be to be transferred to a SNF or an LTAC would prefer [place] as I can follow patients closely and attempt hyperbaric oxygen while there to promote wound healing. Dr. Davies consultation reveals that he would recommend medical treatment at this time in the setting of a nonhealing ulceration and would recommend further intervention. Podiatry will continue to follow as an inpatient. Job#: [id number] MAXIMILIANO
--- NOTE | 2018-11-04 14:44 | Progress Note ---
DATE: SUBJECTIVE: Mr. Zaldivar is doing better. No new complaints. Met with the daughter, reviewed her laboratory data and the plan of care. Cultures reviewed. He is growing MRSA from his foot. PHYSICAL EXAMINATION GENERAL: He is currently alert and oriented. Does not seem to be in acute distress. VITAL SIGNS: Stable. Afebrile. HEENT: He does not appear icteric. NECK: Supple. CHEST: Clear. HEART: S1, S2. No murmur. ABDOMEN: Soft. IMPRESSION: Osteomyelitis of the foot, on vancomycin. Plan for him to go to LTAC. Will follow. Job#: [id number] NINOSKA
[2018-11-04] MEDS: ENOXAPARIN SOD INJ 40 MG/0.4 ML SYR SC SCH (17:34)
--- NOTE | 2018-11-04 19:00 | NUR ---
patient recieved awake, alert, lying quietly in bed. vss. no c/o pain noted. pm assessment complete. patient instructed to call for assistance when needed.
[2018-11-04] MEDS: INSULIN GLARGINE 100 UNITS/ML ML SC SCH (20:53)
--- NOTE | 2018-11-04 22:30 | NUR ---
dressing to left foot c,d,i. attempted to change dressing at this time per orders but patient refuses. patient states, " No No No...Not now... Me sleeping. " dressing not changed per patient request.
--- NOTE | 2018-11-04 22:34 | Progress Note ---
DATE: November 04, 2018 CARDIOLOGY PROGRESS NOTE SUBJECTIVE: Foot wound continues to improve. OBJECTIVE VITAL SIGNS: Temperature 98.8, heart rate 74, blood pressure 148/64, respiratory rate 20, and O2 sat 98%. GENERAL: No acute distress, alert. NECK: No JVD. CHEST: Clear to auscultation. CARDIOVASCULAR: Regular rate and rhythm. Normal S1 and S2. ABDOMEN: Soft, nontender. EXTREMITIES: No edema. First toe stable ulceration. Left foot wounds today covered with dressings. CARDIOVASCULAR MEDICATIONS: Reviewed. STUDIES: Potassium of 4.4, chloride 90, and creatinine 1.02. Hemoglobin 8.1, white blood cells 9.6, and platelets 399,000. ASSESSMENT 1. Peripheral vascular disease, predominantly outflow disease with chronic first right toe wound and abscess and cellulitis to left lower extremity, now status post incision and drainage with improving wound healing reportedly. 2. Smoker/tobacco abuse. 3. Hypertension. 4. Dyslipidemia. 5. Coronary artery disease. RECOMMENDATIONS 1. I spoke with Jayson about plan of care. At this point, with predominant outflow disease and noticeable improvement in wounds, we will continue with close foot care by podiatry and IV antibiotics. I agree with plan for LTAC and close monitoring. If transferred to [place], we will follow there. If wound healing issues arise, we will proceed with angiography for confirmation/occlusion of small vessel which has been patient's predominant issue in the past and currently supported by Doppler. 2. Continue rest of cardiovascular accident medications including aspirin and statin which have been added. Job#: [id number]
[2018-11-05] VITALS (7 sets, daily range): BP systolic 115–153; BP diastolic 60–72
[2018-11-05] MEDS: CEFEPIME 2 GM/NS 0.9% 100 ML 100 ML IV SCH ×2 (01:02→13:45)
--- NOTE | 2018-11-05 01:31 | NUR ---
blood sugar 190 at this time.
--- NOTE | 2018-11-05 06:00 | NUR ---
dressings changed to both feet per orders at this time and clean socks applied. no c/o pain noted.
[2018-11-05 06:02] LABS: BASOPHILS # (AUTO) 0.1 (0.0-0.1); BASOPHILS % 0.6 % (0.0-1.0); EOSINOPHILS # (AUTO) 0.6 (0.0-0.4); EOSINOPHILS % 6.6 % (0.0-6.0); HEMOGLOBIN 7.8 g/dL (14.0-18.0); LYMPHOCYTES % 11.6 % (18.0-39.1); MEAN CORPUSCULAR HEMOGLOBIN 29.5 pg (28-32); MEAN CORPUSCULAR HGB CONC 37.1 g/dL (31-35); MEAN CORPUSCULAR VOLUME 79.5 fL (81-99); MONOCYTES # (AUTO) 0.5 (0.2-0.8); MONOCYTES % 6.2 % (4.4-11.3); NEUTROPHILS # (AUTO) 6.2 (2.1-6.9); NEUTROPHILS % 74.3 % (38.7-80.0); PLATELET COUNT 389 x10e3/uL (140-360); RED BLOOD COUNT 2.64 x10e6/uL (4.3-5.7); RED CELL DISTRIBUTION WIDTH 13.2 % (11.7-14.4)
[2018-11-05 06:40] LABS: BLOOD UREA NITROGEN 11 mg/dL (7-26); BUN/CREATININE RATIO 12 (6-25); CALCIUM 8.3 mg/dL (8.4-10.2); CARBON DIOXIDE 20 mmol/L (22-29); CHLORIDE 104 mmol/L (98-107); EST GLOMERULAR FILTRATION RATE > 60 ML/MIN (60-); GLUCOSE 153 mg/dL (74-118); SODIUM 134 mmol/L (136-145)
--- NOTE | 2018-11-05 07:23 | NUR ---
PATIENT IN BED RESTING WITH NO RESPIRATORY DISTRESS. DRESSING DRY AND INTACT TO FEET. 400CC OF CLEAR YELLOW URINE EMPTIED FROM URINAL. BED IN LOWER POSITION, CALL LIGHT AT REACH.
[2018-11-05] MEDS: INSULIN REGULAR, HUMAN 100 UNIT/1 ML 3ML VIAL SQ SCH ×4 (07:30→21:00)
--- NOTE | 2018-11-05 08:42 | Consultation ---
DATE OF CONSULTATION: REASON FOR CONSULTATION: Infection of the left foot. Thank you so much for asking me to see this patient. This patient who is a very pleasant 63-year-old male who has a history of diabetes mellitus, history of osteomyelitis, history of diabetes mellitus with neuropathy, peripheral vascular disease, hyperlipidemia. He was admitted through the emergency room with worsening infection of his left foot. Patient is well known to Dr. Lamas. I have seen him before. The patient apparently his foot is getting progressively worse for a few days. He does have a history of peripheral vascular disease. He is well known to Dr. Davies. Procedure was done on him recently. He is coming with wound from his left foot, which is draining. His culture is showing Staphylococcus aureus. This was a superficial culture. The patient was admitted. PAST MEDICAL HISTORY: Diabetes mellitus, hypertension, neuropathy as mentioned above. PAST SURGICAL HISTORY: History of several debridements done on his foot before. ALLERGIES: NKA. SOCIAL HISTORY: There is no smoking, drug abuse or alcohol abuse. FAMILY HISTORY: Hypertension and diabetes. REVIEW OF SYSTEMS HEENT: Negative. PULMONARY: Negative. NECK: Negative. LABS: White count is 14.27, hemoglobin 9.1. His platelets are 88,000. Sodium 131, potassium 4, creatinine 1.06. Cultures showing Staphylococcus aureus. There were superficial punctures really. His foot x-ray showed there is no evidence of osteo. PHYSICAL EXAMINATION GENERAL: He is currently alert and oriented. Does not seem to be in acute distress. VITALS: Stable. Currently afebrile. HEENT: Not icteric. NECK: Supple. CHEST: Clear bilateral. CORE: S1 and S2. No S3, S4 or murmur. ABDOMEN: Soft. Bowel sounds present. No tenderness. EXTREMITIES: Left foot, there is erythema and edema. There is an open ulcer noted at the base of the 1st toe base. IMPRESSION 1. Open wound which is infected. 2. Patient with peripheral vascular disease. X-ray does not reveal osteo, but the wound is chronic. I am concerned about osteo. Agree with vancomycin. Will get an MRI. Obtain sed rate. Obtain C-reactive protein. Will follow vancomycin trough. Recheck CBC. Recheck Chem panel biweekly. Will follow with you. Job#: [id number] OR
--- NOTE | 2018-11-05 09:16 | Progress Note ---
DATE: November 05, 2018 SUBJECTIVE: This 63-year-old male with past medical history of type 2 diabetes, peripheral neuropathy, peripheral vascular disease, and hyperlipidemia, is postoperative day 4 left foot incision and drainage procedure. Patient currently relates no pain at the time. Denies nausea, vomiting, fever, chills, chest pain, or shortness of breath. No other pedal complaints at this time. VITAL SIGNS: Today, temperature is 99.3, heart rate 72, respiratory rate 18, blood pressure 143/72, pulse ox is 97% on room air. PROBLEM-FOCUSED LOWER EXTREMITY PHYSICAL EXAMINATION: VASCULAR: Dorsalis pedis and posterior tibial pulses are palpable. Capillary refill time less than 3 seconds to all digits. Erythema, edema, and warmth are completely resolved at this point. MUSCULOSKELETAL: Deferred. Negative pain on palpation. NEUROLOGICAL: Absent to light touch bilateral. DERMATOLOGICAL: Large postsurgical ulceration is noted to the plantar aspect of the first metatarsophalangeal joint. The wound is 100% fibrotic and macerated. No bone is exposed. Improvement of local acute signs of infection. Second incision along the medial aspect of the ankle joint is nearly fully epithelialized at this time. LABS: White blood cell count is 8.3, hemoglobin of 7.8, hematocrit is 21.0, and platelet count is 389,000. Sodium 134, potassium 4.0, chloride 104, CO2 20, BUN 11, creatinine 0.9. Glucose 153. IMAGING: MRI, no evidence of osteomyelitis. Arterial Dopplers revealed bilateral lower extremity waveforms demonstrate outflow disease, likely small vessel. Wound cultures, MRSA, gram-negative shayna, E. faecalis. ASSESSMENT: 1. Left foot cellulitis, abscess formation, postoperative day 4 incision and drainage procedure. 2. Type 2 diabetes. 3. Peripheral neuropathy. 4. Peripheral vascular disease. PLAN: Patient was seen and evaluated. Discussed condition, x-rays, and MRI with patient and patient's family in detail. The dressing was changed today with hydrogel and the wound care applied. Continue local wound care and IV antibiotics. Patient is likely being transferred to a SNF for long-term antibiotics and wound care and possibly hyperbaric oxygen. Vascular consult recommended continuing medical treatment as oppose to interventional treatment unless there is a nonhealing wound present. The podiatry will continue to follow as an inpatient. The patient is stable to discharge from podiatry standpoint. The podiatry service will continue to monitor as an inpatient. Job#: [id number]
[2018-11-05] MEDS: LOSARTAN POTASSIUM 100 MG TAB PO SCH (09:28)
[2018-11-05] MEDS: VANCOMYCIN 1GM/NS 250 ML 250 ML IV SCH ×2 (09:28→21:00)
[2018-11-05] MEDS: NIFEDIPINE CR 30 MG TAB PO SCH ×2 (09:28→21:00)
[2018-11-05] MEDS: METOPROLOL SUCCINATE 50 MG TAB XL PO SCH (09:29)
--- NOTE | 2018-11-05 11:32 | Progress Note ---
DATE: November 05, 2018 MEDICINE PROGRESS NOTE I am covering for Dr. Dailey. SUBJECTIVE: The patient is doing well. He is at baseline with no other issues at this time. We are working on [facility] for placement. OBJECTIVE VITAL SIGNS: Temperature is 97, pulse 74, respiratory rate 18, blood pressure 152/67, pulse ox 100% on room air. LAB FINDINGS: White count is 8.3, hemoglobin 7.8, hematocrit 21, platelets 389. Chemistries: Sodium 134, potassium 4, chloride 104, bicarb 20, anion gap 14, BUN 11, creatinine 0.9, glucose 153, calcium 8.3. MICROBIOLOGY: His wound culture shows gram-negative bacilli, Enterococcus faecalis, and MRSA. Blood cultures were negative. IMAGING STUDIES: None now. PHYSICAL EXAMINATION GENERAL: Not in acute distress, alert and oriented x3, cooperative on examination. HEENT: Head is normocephalic, atraumatic. Eyes: Pupils are equal and reactive to light bilaterally. Extraocular movements are intact bilaterally. NECK: Supple. Good range of motion. Throat with no evidence of any erythema or exudates in the posterior pharynx. Has poor dentition. PULMONARY: Clear to auscultation bilaterally. No wheezing. No rales. No rhonchi. No crackles appreciated. CARDIOVASCULAR: Positive S1 and S2. No murmurs, rubs, or gallops appreciated. ABDOMEN: Soft, nondistended, and nontender to palpation. Bowel sounds present. MUSCULOSKELETAL: Strength is 5/5 throughout. No evidence of any musculoskeletal deficit on examination. No weakness appreciated. NEUROLOGICAL: Cranial nerves II through XII are grossly intact. No evidence of any neurological deficits on exam. SKIN: Intact. Warm to touch. Good cap refill. PSYCHIATRIC: Normal affect and mood. EXTREMITIES: No edema. Good range of motion throughout. IMPRESSION 1. Left foot wound and cellulitis with abscess formation with no evidence of any osteomyelitis, status post incision and drainage performed by podiatry. 2. Type-2 diabetes with peripheral neuropathy. 3. Peripheral arterial disease. 4. Hypertension. PLAN: At this time, continue with IV antibiotics as per ID recommendations. Podiatry is monitoring closely. His glucose levels are better controlled adding the Levemir and insulin sliding scale. Hemoglobin A1c was 7.9. At this time, we are working on [facility] according to the nurse, and we will continue to follow with that. Dr. Dailey will be available tomorrow to continue care. Job#: [id number]
--- NOTE | 2018-11-05 12:38 | NUR ---
SPOKE WITH MD REGARDING ELEVATED BLOOD SUGAR, NEW ORDER RECEIVED TO GIVE 3 MORE UNITS OF INSULIN. ORDER IMPLEMENTED. WILL CLOSELY MONITOR.
--- NOTE | 2018-11-05 16:00 | NUR ---
BLOOD SUGAR IS 205 AT THIS TIME. WILL CONTINUE TO MONITOR.
[2018-11-05] MEDS: ENOXAPARIN SOD INJ 40 MG/0.4 ML SYR SC SCH (17:46)
--- NOTE | 2018-11-05 19:22 | NUR ---
PT IS RESTING IN BED. NO RESPIRATORY DISTRESS NOTED. BED IN THE LOWEST POSITION, LOCKED, AND CALL LIGHT WITHIN REACH. WILL CONTINUE TO MONITOR.
--- NOTE | 2018-11-05 20:38 | Progress Note ---
DATE: November 05, 2018 CARDIOLOGY PROGRESS NOTE SUBJECTIVE: No new complaints. PHYSICAL EXAMINATION: VITAL SIGNS: Temperature of 97 degrees, heart rate 74, blood pressure 153/67, respiratory rate 18, O2 sat 100%. GENERAL: In no acute distress, alert. NECK: No JVD. CHEST: Clear to auscultation. CARDIOVASCULAR: Regular rate and rhythm. Normal S1 and S2. No S3 or S4. ABDOMEN: Soft, nontender. EXTREMITIES: No edema. Chronic right first toe wound stable. Left foot wounds, status post incision and drainage. CARDIOVASCULAR MEDICATIONS: Losartan, nifedipine, Lovenox, metoprolol, vancomycin, and cefepime. STUDIES: Reviewed. Creatinine is 0.9, hemoglobin 7.8, platelets 389,000. Normal transaminases. ASSESSMENT: 1. Anemia. 2. Hypertension. 3. Left foot abscess and cellulitis, status post incision and drainage. 4. Peripheral vascular disease, predominantly outflow disease. 5. Active smoker. RECOMMENDATIONS: 1. Anemia workup advised. 2. Consider fecal occult blood test. If negative, consider resuming aspirin 81 mg daily. 3. Up-titration of beta-lupe for better blood pressure control is advised. Will switch if persists with elevated blood pressure tomorrow. 4. Undergoing evaluation for possible LTAC. Continue IV antibiotics/wound care per podiatry. Job#: [id number]
[2018-11-05] MEDS: INSULIN GLARGINE 100 UNITS/ML ML SC SCH (21:00)
[2018-11-06] VITALS (8 sets, daily range): BP systolic 96–154; BP diastolic 60–75
[2018-11-06] MEDS: CEFEPIME 2 GM/NS 0.9% 100 ML 100 ML IV SCH ×2 (01:35→13:25)
[2018-11-06] MEDS: INSULIN REGULAR, HUMAN 100 UNIT/1 ML 3ML VIAL SQ SCH ×4 (07:30→21:02)
--- NOTE | 2018-11-06 07:30 | NUR ---
PATIENT OUT OF BED TO CHAIR WATCHING TV. DRESSING DRY AND INTACT TO LEFT FOOT, RIGHT GREAT TOE WOUND OPEN TO AIR. CALL LIGHT AT REACH, INSTRUCTED TO CALL FOR ASSISTANCE NEEDED.
[2018-11-06] MEDS: METOPROLOL SUCCINATE 50 MG TAB XL PO SCH (09:13)
[2018-11-06] MEDS: LOSARTAN POTASSIUM 100 MG TAB PO SCH (09:13)
[2018-11-06] MEDS: NIFEDIPINE CR 30 MG TAB PO SCH ×2 (09:13→21:02)
[2018-11-06] MEDS: VANCOMYCIN 1GM/NS 250 ML 250 ML IV SCH ×2 (10:30→21:02)
--- NOTE | 2018-11-06 10:59 | NUR ---
SPOKE WITH DR JASON LYNNE REGARDING ABNORMAL LAB RESULT, NO NEW ORDER RECEIVED.
[2018-11-06] MEDS: ASPIRIN 81 MG CHEW TAB PO SCH (12:00)
--- NOTE | 2018-11-06 12:32 | NUR ---
MET W THE PT AND PT AND [facility] AT THE BEDSIDE. [facility] # [phone] RECEIVED ORDER FOR LTAC. DTR AND PT AWARE. SIGNED CHOICE LETTER FOR [facility]. JOSUE NOTIFIED.
--- NOTE | 2018-11-06 12:49 | NUR ---
WOUND CARE CONSULTATION - FOLLOW UP Patient admitted from home for sudden onset of cellulitis of left foot. Currently being followed for IP and OP WC by Haven Dubose. WBC 8.35 HGB 7.8 HCT 21 NEUT% 74.3 GLU 153 Patient Visit: -Patient in [facility] [employer] AAOx4, Daughter at bedside. Sami Speaking. - Left Foot Dressing - bloody Strikethrough - Loose Fibrotic white tissue covering most of wound bed consistent with ischemia. Needs to rule out small vessel disease.Could Benefit from HBO. - Dressing changed as prescribed with Silvasorb Gel -Exposed tendon viable with pearlescent appearance. Overall foot appears to be improving in redness and swelling improving. - Pt on IV ABX. IMPRESSION: 1. Right Foot Great Toe - Non-Healing DFU Grade 1 w/Biofilm forming.- HEALING. 2. Left Foot 1st Met Head- DFU Grade 3- w/exposed tendon- S/P I&D 10/31/[address] Cydney Roberson - STABLE. 3. Left Dorsal Incision-S/P I&D 10/31/[address] Cydney Roberson - HEALING. RECOMMENDATION: Continue Current Treatment Plan - Pending LTC Evaluation with Hyperbaric Therapy planned at [facility] for continued manager intermediate IV ABX. WC TX: 1. . Right Foot Great Toe - w/Biofilm forming. - Aggressively cleanse wound bed with Normal Saline and 4x4 Gauze.( Goal: Beefy Red ) - Apply Silvasorb Gel and Cover with 4x4 gauze Daily. 3. Left Foot 1st Met Head- w/exposed tendon - Cleanse wound with Normal Saline and 4x4 Gauze. -Apply Silvasorb Gel and Cover with Adaptic+ bolstered/staggered 4x4 Gauze and wrap with Kerlix Daily. 4. Left Dorsal Incision- - Cleanse wound with Normal Saline and 4x4 Gauze. - Maxsorb Ag+ and Cover with bolstered/staggered 4x4 Gauze and wrap with Kerlix Daily. Thank you for consulting with Wound Care. Addendum: 11/06/18 at 1257 by Ezekiel Dumont RN Amended: Links added.
[2018-11-06] MEDS ORDERED: INSULIN GLARGINE 100 UNITS/1 ML 3ML PEN SQ ONE (13:00)
--- NOTE | 2018-11-06 13:20 | NUR ---
SPOKE WITH MD REGARDING ELEVATED BLOOD SUGAR NEW ORDER RECEIVED.
--- NOTE | 2018-11-06 13:24 | Progress Note ---
DATE: November 06, 2018 SUBJECTIVE: This is a 63-year-old male with past medical history of type-2 diabetes, peripheral neuropathy, peripheral vascular disease, and hyperlipidemia, postoperative day 5 left foot incision and drainage procedure. Patient currently relates to no pain at this time. Denies nausea, vomiting, fever, chills, chest pain or shortness of breath. No other pedal complaints at this time. OBJECTIVE VITAL SIGNS: Temperature is 98.4, heart rate 66, respiratory rate 18, blood pressure 96/60, pulse ox 100% on room air. PROBLEM - FOCUSED LOWER EXTREMITY PHYSICAL EXAMINATION VASCULAR: Dorsalis pedis and posterior tibial pulses are palpable. Capillary refill time less than 3 seconds to all digits. Erythema, edema and warmth are completely resolved at this point. MUSCULOSKELETAL: Deferred. Negative pain on palpation. NEUROLOGICAL: Absence to light touch bilateral. DERMATOLOGICAL: Large postsurgical ulceration is noted to the plantar aspect of the 1st metatarsophalangeal joint. The wound is 100% fibrotic and macerated. No bone exposure. Improving local acute signs of infection. A 2nd incision along the medial aspect of the ankle is fully epithelialized at this time with no local acute signs of infection. LABS: These are from 11/05/2018. White blood count 8.35, hemoglobin 7.8, hematocrit 21.0, platelet count 389. Glucose is 263. ASSESSMENT 1. Left foot cellulitis and abscess formation, postoperative day 5 incision and drainage procedure. 2. Type-2 diabetes with peripheral neuropathy. 3. Peripheral vascular disease. 4. Tobacco abuse. PLAN: Patient was seen and evaluated. Discussed condition, x-rays and treatment options with the patient in detail. Dressing was changed today with hydrogel and Adaptic for wound care. Continue local wound care with IV antibiotics. Patient is likely being transferred to [facility] facility for long-term antibiotics and local wound care as well as possible hyperbaric oxygen. Vascular consult continues to recommend medical treatment. The patient is currently afebrile with no leukocytosis and is stable to discharge from podiatry from this standpoint. The podiatry service will continue to monitor as an inpatient. Job#: [id number]
[2018-11-06] MEDS: ENOXAPARIN SOD INJ 40 MG/0.4 ML SYR SC SCH (17:17)
--- NOTE | 2018-11-06 19:32 | NUR ---
PT IS RESTING IN BED. NO RESPIRATORY DISTRESS NOTED. BED IN THE LOWEST POSITION, LOCKED, AND CALL LIGHT WITHIN REACH. WILL CONTINUE TO MONITOR.
[2018-11-06] MEDS: INSULIN GLARGINE 100 UNITS/ML ML SC SCH (21:02)
--- NOTE | 2018-11-06 21:33 | Progress Note ---
DATE: November 06, 2018 SUBJECTIVE: No new complaints today. PHYSICAL EXAMINATION: VITAL SIGNS: Temperature of 99.6, heart rate 74, blood pressure 135/64, respiratory rate 18, O2 sat 98%. GENERAL: In no acute distress, alert. NECK: No JVD. CHEST: Clear to auscultation. CARDIOVASCULAR: Regular rate and rhythm. Normal S1 and S2. No S3 or S4. ABDOMEN: Soft. EXTREMITIES: No edema. Stable right first toe wound. Left foot wounds covered with dressings. CARDIOVASCULAR MEDICATIONS: Reviewed, on losartan, nifedipine, metoprolol, aspirin. ANTIBIOTICS: Cefepime and vancomycin. STUDIES: Reviewed. Creatinine 0.9, hemoglobin 7.8, white blood cells 8.3, platelets 389,000. Normal transaminases. ASSESSMENT: 1. Peripheral vascular disease, predominantly outflow. 2. Right chronic first toe wound, stable and status post left foot abscess and cellulitis, followed by debridement. 3. Hypertension. 4. Dyslipidemia. 5. Smoker. 6. Coronary artery disease. RECOMMENDATIONS: 1. Continue current cardiovascular medications. 2. Undergoing evaluation for possible LTAC transfer. 3. Continue antibiotics. 4. Monitor closely wound healing. If delayed wound healing or suboptimal response, I have discussed with patient possible angiography and revascularization as needed. However, by previous angiogram and Dopplers, predominant outflow small-vessel disease. Job#: [id number]
[2018-11-07] VITALS (8 sets, daily range): BP systolic 124–152; BP diastolic 63–80
[2018-11-07] MEDS: CEFEPIME 2 GM/NS 0.9% 100 ML 100 ML IV SCH ×2 (01:36→14:30)
[2018-11-07] MEDS: VANCOMYCIN 1GM/NS 250 ML 250 ML IV SCH ×2 (08:26→21:00)
[2018-11-07] MEDS: NIFEDIPINE CR 30 MG TAB PO SCH ×2 (08:27→21:00)
[2018-11-07] MEDS: ASPIRIN 81 MG CHEW TAB PO SCH (08:27)
[2018-11-07] MEDS: LOSARTAN POTASSIUM 100 MG TAB PO SCH (08:27)
[2018-11-07] MEDS: METOPROLOL SUCCINATE 50 MG TAB XL PO SCH (08:28)
[2018-11-07] MEDS: INSULIN REGULAR, HUMAN 100 UNIT/1 ML 3ML VIAL SQ SCH (08:28)
[2018-11-07] MEDS ORDERED: DEXTROSE 50% SYRINGE 50 ML IV PRN (09:00)
[2018-11-07] MEDS: INSULIN LISPRO 100 UNIT/1 ML 3ML VIAL SQ SCH ×5 (12:35→21:00)
--- NOTE | 2018-11-07 13:08 | Progress Note ---
DATE: November 07, 2018 SUBJECTIVE: No new complaints. PHYSICAL EXAMINATION VITAL SIGNS: Temperature is 97.7, heart rate 64, respiratory rate 18, blood pressure 150/70, O2 sat 100% on room air. GENERAL: In no acute distress, alert. NECK: No JVD. CHEST: Clear to auscultation. CARDIOVASCULAR: Regular rate and rhythm. Normal S1 and S2. No S3. No S4. ABDOMEN: Soft, nondistended. EXTREMITIES: No edema. Right first toe chronic wound. The left foot wound with fibrinous material. CARDIOVASCULAR MEDICATIONS: Reviewed. 1. Metoprolol succinate 100 mg daily. 2. Aspirin 81 mg daily. 3. Nifedipine extended release 60 mg every 12 hours. 4. Losartan 100 mg daily. 5. Lovenox 40 mg subcutaneous daily. 6. Vancomycin and cefepime antibiotics. STUDIES: Reviewed. Glucose 351 noted today. ASSESSMENT 1. Peripheral vascular disease, predominantly outflow small vessel disease. 2. Right chronic first toe wound, status post left foot abscess and cellulitis, improving post debridement. 3. Hypertension. 4. Dyslipidemia. 5. Smoker. 6. Coronary artery disease. RECOMMENDATIONS 1. Continue current cardiovascular medications. 2. Close monitoring of wound healing. If impaired wound healing, I have discussed extensively with the patient would favor then angiography and possible revascularization as needed. However, at the present time, Dopplers are suggesting predominantly outflow disease. He did have some aortoiliac disease before, at that time told moderate. He does have small vessel disease at foot level on previous remote angiography. Job#: [id number]
[2018-11-07] MEDS: ENOXAPARIN SOD INJ 40 MG/0.4 ML SYR SC SCH (16:47)
--- NOTE | 2018-11-07 19:15 | NUR ---
Received Pt lying supine in bed. Alert and orient to name, place. Mostly Moldovan speaking. Denies pain at this time. Resp even and unlabored. Call wasserman within reach. Will continue to monitor.
[2018-11-07] MEDS: INSULIN GLARGINE 100 UNITS/ML ML SC SCH (21:00)
[2018-11-08] VITALS (8 sets, daily range): BP systolic 135–160; BP diastolic 67–82
[2018-11-08] MEDS: CEFEPIME 2 GM/NS 0.9% 100 ML 100 ML IV SCH ×2 (02:18→14:00)
[2018-11-08] MEDS: ASPIRIN 81 MG CHEW TAB PO SCH (08:27)
[2018-11-08] MEDS: INSULIN LISPRO 100 UNIT/1 ML 3ML VIAL SQ SCH ×7 (08:27→21:11)
[2018-11-08] MEDS: LOSARTAN POTASSIUM 100 MG TAB PO SCH (08:27)
[2018-11-08] MEDS: NIFEDIPINE CR 30 MG TAB PO SCH ×2 (08:28→21:11)
[2018-11-08] MEDS: METOPROLOL SUCCINATE 50 MG TAB XL PO SCH (08:28)
--- NOTE | 2018-11-08 08:51 | Progress Note ---
DATE: November 08, 2018 SUBJECTIVE: A 63-year-old male with a past medical history of type 2 diabetes, peripheral vascular disease, hyperlipidemia, is postoperative day 7 left foot incision and drainage procedure. Patient relates to no pain at this time. Denies nausea, vomiting, fever, chills, chest pain, or shortness of breath. No other pedal complaints at this time. PHYSICAL EXAMINATION VITAL SIGNS: Today, temperature 96.3, heart rate 84, respiratory rate 18, blood pressure 135/81, pulse ox 100% on room air. LOWER EXTREMITY PHYSICAL EXAMINATION VASCULAR: Dorsalis pedis and posterior tibial pulses are palpable. Capillary refill time less than 3 seconds to all digits. Erythema, edema and warmth are completely resolved at this point. MUSCULOSKELETAL: Deferred. Negative pain on palpation. NEUROLOGICAL: Absent to light touch. DERMATOLOGICAL: Large postsurgical ulceration noted on the plantar aspect of the 1st metatarsal joint. The wound is 100% fibrotic with mild granulation tissue noted to the periphery. Tendon is exposed, but appears to be healing appropriately. There is no bone exposure this time. Improving periwound erythema, edema and warmth. The 2nd incision along the medial aspect of the left ankle is fully epithelialized with no local acute signs of infection. LABS: Glucose 175. MICROBIOLOGY: MRSA, Acinetobacter, and E. faecalis. ASSESSMENT 1. Left foot cellulitis with abscess formation, postoperative day 7 incision and drainage procedure. 2. Type 2 diabetes with peripheral neuropathy. 3. Peripheral vascular disease. 4. Tobacco abuse. PLAN: Patient was seen and evaluated. His condition, x-rays, MRI, and treatment options discussed with the patient in detail. Dressing was changed today with hydrogel, SilvaSorb and Adaptic for wound care. Continue local wound care and IV antibiotics per sensitivities. Appreciate vascular consult. The patient is currently afebrile with no leukocytosis and is stable for discharge from the podiatry standpoint. Patient will likely need wound debridement on a weekly basis. Current LTAC evaluation is pending. Once the decision is made for transfer, will plan for debridement upon being transferred to another facility. If the patient is transferred to a facility where we do not have privileges, would recommend followup in the office for weekly debridements. The podiatry service will continue to monitor as an inpatient. Job#: [id number] HEMANTH
[2018-11-08 08:54] LABS: BASOPHILS # (AUTO) 0.1 (0.0-0.1); BASOPHILS % 0.7 % (0.0-1.0); EOSINOPHILS # (AUTO) 0.8 (0.0-0.4); EOSINOPHILS % 7.7 % (0.0-6.0); HEMATOCRIT 29.7 % (38.2-49.6); HEMOGLOBIN 9.7 g/dL (14.0-18.0); LYMPHOCYTES # (AUTO) 1.5 (1.0-3.2); LYMPHOCYTES % 13.8 % (18.0-39.1); MEAN CORPUSCULAR HEMOGLOBIN 27.5 pg (28-32); MEAN CORPUSCULAR HGB CONC 32.7 g/dL (31-35); MEAN CORPUSCULAR VOLUME 84.1 fL (81-99); MONOCYTES # (AUTO) 0.6 (0.2-0.8); MONOCYTES % 5.5 % (4.4-11.3); NEUTROPHILS # (AUTO) 7.7 (2.1-6.9); NEUTROPHILS % 71.6 % (38.7-80.0); PLATELET COUNT 599 x10e3/uL (140-360); RED BLOOD COUNT 3.53 x10e6/uL (4.3-5.7); RED CELL DISTRIBUTION WIDTH 13.1 % (11.7-14.4)
[2018-11-08] MEDS: VANCOMYCIN 1GM/NS 250 ML 250 ML IV SCH (09:00)
[2018-11-08 09:40] LABS: ANION GAP 16.5 mmol/L (8-16); BLOOD UREA NITROGEN 12 mg/dL (7-26); BUN/CREATININE RATIO 11 (6-25); CARBON DIOXIDE 23 mmol/L (22-29); CHLORIDE 98 mmol/L (98-107); EST GLOMERULAR FILTRATION RATE > 60 ML/MIN (60-); GLUCOSE 209 mg/dL (74-118); POTASSIUM 4.5 mmol/L (3.5-5.1); SODIUM 133 mmol/L (136-145)
--- NOTE | 2018-11-08 15:04 | NUR ---
Nutrition Screen Note RD Recommendation for Physician: -Continue ADA diet as ordered -Pt refused diet education on 11/01. Plan of Care: RD following, monitoring for tolerance and adequacy Nutrition reason for involvement: Follow up Primary Diagnose(s): 1. Left foot wound cellulitis and abscess formation. 2. Type 2 diabetes with peripheral neuropathy. 3. Peripheral vascular disease. PMH: hypertension, type 2 diabetes, peripheral neuropathy, peripheral vascular disease, and hyperlipidemia Ht: 72in Wt: 190lb BMI: 25.8kg/m2 IBW: 178lb RD Assessment: (11/08) Pt is eating well. No chew or swallowing problems. No C/O of nausea. Wt changes noted and RD is following. (11/01) Chart reviewed. Labs and meds reviewed. 63yo M, who is admitted for L foot pain. Visited pt in room. Daughter presented on bedside to translate as pt only speaks Qatari. 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 Pt denied chewing/swallowing problems and nausea/vomiting. Good appetite and PO intake on current ADA diet. LBM 11/01. Pt refused diet education. Will cont to monitor. Please consult as needed. Current Diet: ADA diet Malnutrition Evaluation (11/01/2018) The patient does not meet criteria for a specified degree of malnutrition at this time. Will re-evaluate at follow-up as appropriate. Diet Education Needs Assessment: Diet education indicated, pt refused. Nutrition Care Level: ayala Marcial RD, LD, [facility]
--- NOTE | 2018-11-08 17:50 | Progress Note ---
DATE: November 08, 2018 CARDIOLOGY PROGRESS NOTE SUBJECTIVE: No new complaints. OBJECTIVE VITALS: Temperature 96.9, heart rate 70, blood pressure 159/79, respiratory rate 18, O2 sat 100%. GENERAL: No acute distress. Alert. NECK: No JVD. CHEST: Clear to auscultation. CARDIOVASCULAR: Regular rate and rhythm. Normal S1 and S2. No S3 or S4. ABDOMEN: Soft. EXTREMITIES: No edema. Left chronic 1st toe wound, right foot wound, status post I and D. CARDIOVASCULAR MEDICATIONS: Reviewed. 1. Nifedipine 60 mg every 12 hours. 2. Aspirin 81 mg daily. 3. Vancomycin and cefepime antibiotics. 4. Metoprolol succinate 100 mg daily. 5. Losartan 100 mg daily. STUDIES: Reviewed. Creatinine 1.1, potassium 4.7. Hemoglobin 9.7, white blood cells 10.6 and platelets 599,000. AST 33, ALT 51. ASSESSMENT 1. Left foot abscess and cellulitis: Status post incision and drainage. 2. Peripheral vascular disease. 3. Hypertension. 4. Dyslipidemia. 5. Smoker. 6. Diabetes mellitus, type 2. RECOMMENDATIONS 1. Continue cardiovascular medications and monitoring of blood pressure. If continues to remain elevated, will up titrate antihypertensives over the next 24-48 hours. 2. Continue close monitoring of wound healing. If healing noted, consider invasive evaluation. Job#: [id number] HEMANTH
[2018-11-08] MEDS: INSULIN GLARGINE 100 UNITS/ML ML SC SCH (21:11)
[2018-11-08] MEDS: VANCOMYCIN 750MG/NS 150ML IVPB 150 ML IV SCH (21:11)
[2018-11-09] VITALS: BP 148/69
--- NOTE | 2018-11-09 02:35 | NUR ---
Removed 20g IV left upper arm leaking, pt tolerated well. Inserted 22g IV right FA, pt tolerated well, flushed with 10ml NS.
[2018-11-09] MEDS: CEFEPIME 2 GM/NS 0.9% 100 ML 100 ML IV SCH ×2 (02:50→14:10)
[2018-11-09 04:00] VITALS: BP 171/67
[2018-11-09 07:15] VITALS: BP 150/69
--- NOTE | 2018-11-09 07:15 | NUR ---
PATIENT IN BED RESTING WITH NO RESPIRATORY DISTRESS. HEALING WOUND TO RIGHT GREAT TOE OPEN TO AIR, DRESSING INTACT TO LEFT FOOT WOUND. URINAL EMPTIED AND CLEANSED. BED IN LOWER POSITION, CALL LIGHT AT REACH..
[2018-11-09] MEDS: INSULIN LISPRO 100 UNIT/1 ML 3ML VIAL SQ SCH ×6 (07:30→16:30)
[2018-11-09 08:03] VITALS: BP 150/69
[2018-11-09] MEDS: ASPIRIN 81 MG CHEW TAB PO SCH (09:35)
[2018-11-09] MEDS: VANCOMYCIN 750MG/NS 150ML IVPB 150 ML IV SCH (09:35)
[2018-11-09] MEDS: LOSARTAN POTASSIUM 100 MG TAB PO SCH (09:35)
[2018-11-09] MEDS: METOPROLOL SUCCINATE 50 MG TAB XL PO SCH (09:36)
[2018-11-09] MEDS: NIFEDIPINE CR 30 MG TAB PO SCH (09:36)
--- NOTE | 2018-11-09 10:30 | NUR ---
SPOKE WITH MD REGARDING ABNORMAL LAB. NEW ORDER RECEIVED AND IMPLEMENTED.
--- NOTE | 2018-11-09 11:40 | Progress Note ---
DATE: November 09, 2018 CARDIOLOGY PROGRESS NOTE SUBJECTIVE: No new complaints. OBJECTIVE VITALS: Temperature 97.5, heart rate 68, blood pressure ranging from 140s to 150s over 60s, respiratory rate 20, O2 sat 99%. GENERAL: No acute distress. Alert. NECK: No JVD. CHEST: Clear to auscultation. CARDIOVASCULAR: Regular rate and rhythm. Normal S1 and S2. No S3. No S4. ABDOMEN: Soft, nontender and nondistended. EXTREMITIES: No edema. Chronic left 1st toe wound now healing. Left wound status post I and D. CARDIOVASCULAR MEDICATIONS: Reviewed. 1. Aspirin 81 mg daily. 2. Metoprolol succinate 100 mg daily. 3. Losartan 100 mg daily. 4. Nifedipine 60 mg daily. STUDIES: Reviewed. Potassium 4.5, chloride 98, sodium 133, bicarbonate 23, BUN 12, creatinine 1.1, glucose 209. White blood cells 10.6, hemoglobin 9.7, platelets 599. AST 33, ALT 61, alkaline phosphatase 87. ASSESSMENT 1. Peripheral vascular disease. 2. Left foot cellulitis and abscess, status post incision and drainage. 3. Smoker. 4. Hypertension. 5. Dyslipidemia. 6. Diabetes mellitus, type 2. RECOMMENDATIONS 1. Continue current cardiovascular medications with the following change: Add diuretic to optimize blood pressure control. 2. Diabetes management per other providers being optimized. 3. Monitor closely clinically for healing. If slow or impaired healing, will proceed with angiography for definitive reassessment of peripheral vascular disease as he had moderate iliac stenosis in the past, predominant outflow disease on previous angiogram. Job#: [id number]
[2018-11-09 11:46] VITALS: BP 127/67
--- NOTE | 2018-11-09 13:05 | NUR ---
DRESSING CHANGED TO LEFT FOOT ORDERED. REPOSITIONED IN BED. CALL LIGHT AT REACH.
--- NOTE | 2018-11-09 14:46 | NUR ---
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
--- NOTE | 2018-11-09 14:53 | NUR ---
CALL MADE TO LANDON / ZHANGR. @ [phone] TO NOTIFY OF TRANSFER TO [facility]. GAVE OK TO TRANSFER AND TRANSPORT TO [facility].
[2018-11-09 16:08] VITALS: BP 125/61
--- NOTE | 2018-11-09 17:40 | NUR ---
PATIENT TRANSFERRED TO [facility] [place]. REPORT CALLED AND GIVEN TO RECEIVING NURSE. IV INTACT TO LEFT FOREARM. ALL PERSONAL ITEMS TAKEN WITH PATIENT. PATIENT'S DAUGHTER NOTIFIED OF TRANSFER. LEFT UNIT ON STRETCHER BY AMBULANCE.
== END 2018-11-09 17:32 | DRG 854 ==
LOC: ER 20:28 → ERHOLD 23:00 → MED/SURG3 11-01 00:31
PROVIDERS: ADMIT Internal Medicine; ATTEND Internal Medicine
PROC: 0JBR0ZZ Excision of Left Foot Subcutaneous Tissue and Fascia, Open Approach (ICD-10-PCS; principal; 2018-10-31)
DX: A41.9 Sepsis, unspecified organism (principal); L97.528 Non-pressure chronic ulcer of other part of left foot with other specified severity; M86.8X7 Other osteomyelitis, ankle and foot; E11.621 Type 2 diabetes mellitus with foot ulcer; Z79.4 Long term (current) use of insulin; E11.40 Type 2 diabetes mellitus with diabetic neuropathy, unspecified; E11.51 Type 2 diabetes mellitus with diabetic peripheral angiopathy without gangrene; I25.10 Atherosclerotic heart disease of native coronary artery without angina pectoris; B95.62 Methicillin resistant Staphylococcus aureus infection as the cause of diseases classified elsewhere; B95.2 Enterococcus as the cause of diseases classified elsewhere; B96.89 Other specified bacterial agents as the cause of diseases classified elsewhere; E11.69 Type 2 diabetes mellitus with other specified complication; F17.210 Nicotine dependence, cigarettes, uncomplicated
CPT/HCPCS: 36415; 80048; 80053; 80202; 82948; 83036; 83605; 83735; 85025; 87040; 87071; 87075; 87186; 87205; 93925; 96361; 99284; J1100; J1650; J1815; J2001; J2250; J2270; J2405; J2543; J3370; J7030; J7050

== ENCOUNTER → 2018-11-22 | Day surgery (SDC) | payer BC ==
[2018-11-22] VITALS (7 sets, daily range): BP systolic 140–186; BP diastolic 64–78
[~2018-11-22] MED LIST changes: +ATORVASTATIN CA20 MG PO; +CLINDAMYCIN HC150 MG PO; +DETEMIR INSULIN; +FENTANYL CITRATE/PF 100MCG/2 ML INJ ONE; +HEPARIN SOD (PORCINE) 1000 UNIT/ML 30ML ONE; +HEPARIN SOD/SOD CHLORIDE 2,000 ML ONE; +IOPAMIDOL 300MG/ML 100 ML INFUS..BTL IV ONE; +LIDOCAINE HCL 1% LOCAL INJ 20 ML VIAL ONE; +METOPROLOL SUCC50 MG PO; +MIDAZOLAM HCL 2 MG/2 ML VIAL ONE; +NIFEDIPINE ER30 M1 PO; +SODIUM CHLORIDE 0.9% 1000ML 1,000 ML ONE; +TYLENOL WITH C1 EACH PO; +insulin aspart SQ
--- NOTE | 2018-11-22 12:00 | NUR ---
1200N Received report Stephanie Castrejon (cardiac cath rn nurse) need to finish pre op in Rm #7 Identifier x2. Incomplete phone report received from previous nurse Ro CASTREJON at [facility] I reached out to Supv. Rolanda Owens Rn. [facility] phone reconciliation list completed.Informed dressing feet and no pedal pulse present palpable to DP left foot .Which she believes was also ongoing and wound care seeing pt. BS this am 176 rechecked and currently 266. 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 Has DFUx2 left bottom foot surface with loose dressing . Weepy serous drainage stage 4. No odor.No dressing to greater toe to right foot.Both sites redressed for precaution. 2x2 with kerlix and light Coban to both sites. Pt has MSO positive and placed on contact Isolation precautions.Hx Bilateral PVD with fix of rt leg earlier this year.Congruent with PT/DP strong palpable to rt foot.Had CAD and IDDM with hx HTN. In for Abdominal aortogram with bilateral run off,possible angioplasty,stent and or thrombectomy/arthrectomy per Dr Davies. VS stable 0/10 pain PIIC to rt arm intact 1000cc 0.9NS at bedside for infusion. Voided 500cc clear urine. Real Time Translation interpretor (Cody Cortez #[id number])used for consent. Pt voiced no concerns bed low position ,call light at bedside, side rail up and ask to call for assistance if needed. Bilater fem site prepped and pre assessment completed. jennifer/CASH
--- NOTE | 2018-11-22 18:30 | NUR ---
[facility] arrived face to face report, Staff will deliver papers to nursing staff at [facility] .Iv continues to infuse at 100cc/hr per Picc line. Site w/o s/s infiltration 500cc NS left in bag Rt sully patch intact, w/o bleeding No hematoma. PPDP stron rt and left leg PT rt leg strong. Resp regular and strong.99% Room air. Rass 0/Domi 10. Denies c/o tolerating po intake and void qs. Report was phone to receiving nurse aware of effie sharma and Dr Davies and attending to f/o. Bilateral wound dressing intact. toes blanching. Family aware of dc POC and left earlier. Pt w/o c/o.
--- NOTE | 2018-11-24 23:01 | Operative Report ---
DATE OF PROCEDURE: 11/22/2018 SURGEON: Matheus Hamm MD INDICATION: Poor wound healing in the patient with known peripheral vascular disease, status post left foot abscess and cellulitis incision and drainage with active wound (critical limb ischemia and limb salvage procedure). PROCEDURES PERFORMED: 1. Abdominal aortogram. 2. Selective lower extremity angiography, bilateral. 3. Catheter placement in the aorta. 4. Third-order catheter placement from right common femoral artery to left FA. 5. Additional third-order catheter placement from right common femoral artery to left popliteal artery for digital subtraction angiography. 6. Left anterior tibial attempted revascularization/MANAGER OF TRANSPORTATION, aborted via antegrade approach. 7. A 6-Malagasy Angio-Seal closure of the right common femoral artery. PROCEDURE COMPLICATIONS: None. ESTIMATED BLOOD LOSS: Less than 50 mL. PROCEDURE SUMMARY: After consent was obtained, the patient was prepped and draped in a sterile fashion and the right femoral site was locally injected with 2% lidocaine. Access was obtained using a micropuncture kit and a short 6-Malagasy sheath was placed. All catheters were railed over a leading J-wire. Omni Flush catheter was positioned in the distal descending abdominal aorta for a selective abdominal aortogram. Initial angiography was performed to each of the bilateral lower extremities with catheter positioned in the left femoral artery and additional positioning in the left popliteal artery as well as catheter positioned in the right external iliac artery for selective lower extremity angiography. The left anterior tibial was approached endovascularly as follows. Heparin was used to maintain an ACT over 250. Aspirin was provided preloading. A Roadrunner wire as well as astato, and wisper wires were used with Seeker 0.035 and 0014 support catheters. Runthrough wire was also attempted. The long left anterior tibial artery chronic total occlusion segment was passed midway, however, given significant complications, pushability was limited and further attempts therefore aborted. Additional selective angiography reveals a small diffusely diseased distal dorsalis pedis artery that is patent via collaterals from the plantar arteries. There was no favorable anatomy for a pedal retrograde approach. Therefore, no additional revascularization attempts were advised at this point for a single left anterior tibial chronic total occlusion and otherwise two-vessel patent runoff to the left lower extremity. The renal arteries are patent. The infrarenal abdominal aorta has less than 30% stenosis. The left common iliac artery has 30% stenosis. The left internal iliac artery is 100% occluded. The left external iliac artery has 30% to 40% eccentric lesion. The right common, external, and internal iliac arteries have less than 50% stenosis. Bilateral common femoral and profunda femoris have less than 30% stenosis. The right SFA 50% stenosis. The left SFA and both popliteals less than 30% lesions. There seems to be three-vessel runoff in the proximal segment of the right lower extremity, however, distal leg vessels are not well visualized. The left anterior tibial is occluded 100% from proximal to distal and left proximal dorsalis pedis artery is also occluded proximally and distally, filling via collaterals through plantar arches of the posterior tibial artery. The TP trunk, peroneal artery, and posterior tibial artery are overall patent with less than 30% areas of stenosis. 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 RECOMMENDATIONS: Continue wound care and antibiotics. Overall guarded prognosis. Medical therapy. MD KAYLIE Jarvis/DOM /[id number] MTDD
== END | disposition home or self-care (01) ==
LOC: CATH LAB 10:44
PROVIDERS: ATTEND Internal Medicine Cardiovascular Disease
DX: I70.249 Atherosclerosis of native arteries of left leg with ulceration of unspecified site (principal); I70.239 Atherosclerosis of native arteries of right leg with ulceration of unspecified site; L98.499 Non-pressure chronic ulcer of skin of other sites with unspecified severity; I70.92 Chronic total occlusion of artery of the extremities; I10 Essential (primary) hypertension; F17.200 Nicotine dependence, unspecified, uncomplicated; Z79.82 Long term (current) use of aspirin; Z79.4 Long term (current) use of insulin
CPT/HCPCS: 36415; 37228; 75625; 75710; 82948; 85347; C1769 ×2; J1644; J2001; J2250; J7030; Q9967; 36247; C1887